=== PATIENT | female | born 1990 | race Caucasian/White ===

== ENCOUNTER 2016-12-05 12:19 | Observation (INO) ==
[2016-12-05] MEDS ORDERED: NS 1,000 ML IV ONE (12:36)
[2016-12-05 13:36] LABS: BASO% 0.5 % (0.0-0.8); EOS# 0.08 X1000 (0.0-0.7); EOS% 1.9 % (0.0-10.0); HEMATOCRIT 28.1 % (37.0-47.0); HEMOGLOBIN 7.9 g/dL (12.0-16.0); LYMPH# 1.24 X1000 (1.2-3.4); LYMPH% 29.8 % (20.5-51.1); MANUAL DIFF NEEDED? NO; MCH 19.5 PG (27-31); MCHC 28.1 g/dL (33-37); MCV 69.2 FL (81-99); MONO# 0.27 X1000 (0.11-0.59); MONO% 6.5 % (1.7-9.3); NEUT% 61.3 % (42.2-75.2); PLT 313 X1000 (130-400); RBC 4.06 XMIL (4.2-5.4)
[2016-12-05 13:46] LABS: AGAP 11; ALBUMIN 4.3 g/dL (3.5-5.0); ALKALINE PHOSPHATASE 71 U/L (32-104); AMYLASE 23 U/L (20-200); BUN 7 mg/dL (8-22); CALCIUM 9.2 mg/dL (8.8-10.2); CHLORIDE 102 mmol/L (98-107); COSMO 276; GOT 16 U/L (10-30); GPT 12 U/L (10-36); LIPASE 25 U/L (13-60); SODIUM 139 mmol/L (136-145); TCO2 26 mmol/L (25-35); TOTAL BILIRUBIN 0.11 mg/dL (0.20-1.00); TOTAL PROTEIN 7.4 g/dL (6.3-8.3)
[2016-12-05 13:53] LABS: URINE MICRO REVIEW NEEDED? NO; URINE SOURCE CLEAN CATCH
[2016-12-05 14:39] LABS: BILIRUBIN URINE NEGATIVE (NEGATIVE); BLOOD URINE LARGE (NEGATIVE); COLOR ORANGE; GLUCOSE URINE NEGATIVE (NEGATIVE); LEUKOCYTES URINE TRACE (NEGATIVE); NITRITE URINE NEGATIVE (NEGATIVE); PH URINE 8.5; PROTEIN URINE TRACE mg/dL (NEGATIVE); SP GRAVITY URINE 1.012; TURBIDITY URINE HAZY (CLEAR); UROBILINOGEN URINE NORMAL (NORMAL)
[2016-12-05 14:40] LABS: UR EPITHELIAL CELLS >10 /HPF (<10); URINE BACTERIA 1+ /HPF; URINE CULTURE NEEDED? YES; URINE RBC <10 /HPF (<10); URINE WBC <10 /HPF (<10)
--- NOTE | 2016-12-05 15:49 | Diag Imaging Result Doc PS360 ---
US PELVIC NON-DUCT INSTALLER COMPLETE - 12/05/2016 INDICATION: Vag bleeding, early preg TECHNIQUE: Endovaginal COMPARISON: None FINDINGS: test is positive. Beta hCG level is 1276. There is a nabothian cyst in the cervix measuring about 1.4 cm. The endometrial stripe thickness is about 9 mm. There is a small hypoechoic or fluid area uterine fundus measuring about 14 x 7 mm. Appearance is indeterminate. This may represent an early . There are several ovarian follicles bilaterally. There is some trace fluid about the right ovary. Ovarian sizes are normal with normal blood flow. The right ovary measures 3.9 x 2.1 x 2.1 cm. The left ovary measures 3.9 x 3.6 x 1.9 cm. IMPRESSION: Indeterminate exam, with no definite intrauterine visible. Small hypoechoic area in the endometrium. Benign nabothian cyst in the uterine cervix. Trace fluid fluid about the right ovary. Follow-up beta hCG levels and probable follow-up imaging recommended. Electronically signed by Colby Camejo 12/05/2016 3:47 PM
--- NOTE | 2016-12-05 16:51 | PROVIDER DOCUMENTATION ---
This chart was entered by Win Shaikh Scribe, acting as scribe for Liana Newton MD. HPI-Female /OB/Breast - General Chief Complaint: Female Stated Complaint: female gu Time Seen by Provider: 12/05/16 12:35 Source: reports: patient Allergies/Adverse Reactions: Patient Allergies Allergy/AdvReac Type Severity Reaction Status Date / Time No Known Allergies Allergy Verified 12/05/16 13:01 Home Medications: Home Medication List Medication Instructions Recorded Confirmed Last Taken Type No Home Medications 03/05/12 12/05/16 Unknown History - History of Present Illness-Female /OB Nature of Presenting Problem: patient is a 26 y/o F that presents with three weeks of heavy vaginal bleeding. patient reports seeing clots and 3 episodes of tissues. She reports having irregular, long periods in past. She has low back pain and low abdominal pain. No fever/chills, n/v/d. Reports possibly being , last regular menstrual period was 8 weeks ago. She is a G 3 P 2 AB 0. Reports her periods usually last 2 weeks Location of complaint: reports: suprapubic Radiation: reports: back Quality of Pain: reports: aching, cramping Severity in ED: reports: moderate Onset/Duration: reports: gradual, other (3 weeks) Timing: reports: still present, getting worse Context/Activities at Onset: reports: none Vaginal Symptoms: reports: abnormal bleeding, passing clots/tissue. denies: discharge, foul odor Vaginal Bleeding Amount: Large/Heavy Pads/Day: 7 Urinary Symptoms: reports: no symptoms Contraception: reports: none Modifying Factors: improves with: nothing Associated Symptoms: denies: back/neck pain, fever/chills, nausea, vomiting, weakness Similar Symptoms Previously?: No Recently seen or treated by another doctor?: No - LMP/ History Menstrual Status: irregular : 3 Para: 2 : 0 Prior Delivery: Review of Systems - Adult - REVIEW OF SYSTEMS - ADULT Constitutional: denies: chills, fever Eyes: reports: no symptoms reported Ears, Nose, Mouth & Throat: reports: no symptoms reported Cardiovascular: reports: no symptoms reported Respiratory: reports: no symptoms reported Gastrointestinal: reports: abdominal pain. denies: diarrhea, nausea, vomiting Genitourinary: reports: other (vaginal bleeding with clots/tissues). denies: dysuria, frequency, hematuria Musculoskeletal: reports: no symptoms reported Integumentary: reports: no symptoms reported Neurological: reports: no symptoms reported Psychiatric: reports: no symptoms reported Endocrine: reports: no symptoms reported Hematologic/Lymphatic: reports: no symptoms reported Allergic/Immunologic: reports: no symptoms reported All Other Systems: Reviewed and Negative Past History - Adult - PAST MEDICAL HISTORY-ADULT Review of Records: reports: Old Records Reviewed, Nursing Assessment Review, Medications Reviewed - PRIOR SURGERIES/PROCEDURES Surgical/Procedure History: reports: - IMMUNIZATION STATUS Childhood Immunizations: See Nurse Assessment Flu Vaccine: See Nurse Assessment - FAMILY HISTORY Family History: reviewed, not pertinent - SOCIAL HISTORY Smoking: non-smoker Alcohol Use Frequency: occasionally Living Situation: family Physical Exam-General - PHYSICAL EXAM-ADULT Initial Vital Signs Reviewed: Yes - CONSTITUTIONAL General Appearance: alert, no apparent distress - EYES Eyes: PERRL/EOMI, pale conjunctivae - HEAD, EARS, NOSE, MOUTH & THROAT HENMT: normocephalic/atraumatic, moist mucous membranes, normal ENT inspection - NECK Neck: full range of motion, normal inspection - RESPIRATORY Respiratory: lungs clear, normal breath sounds, no respiratory distress, no accessory muscle use - CARDIOVASCULAR Cardiovascular: regular rate, rhythm, no edema, no murmur - GASTROINTESTINAL (ABDOMEN) Abdominal Exam: normal bowel sounds, soft, no organomegaly, no pulsatile mass, tenderness (mildly bilateral lower quadrants) - MUSCULOSKELETAL Extremity: normal range of motion, normal inspection - SKIN Integumentary: warm/dry, pallor (slight) - NEUROLOGIC Neurologic: manager human capital II-XII nml as tested, no motor/sensory deficits - PSYCHIATRIC Psych/Mental Status: normal mood/affect, normal thought content, normal thought process, oriented x 3 Progress - PLAN OF CARE/RESULTS Progress/Plan/Lab Results: Vital Signs - 8 hr 12/05/16 12:22 Temperature 98.6 F Pulse Rate 86 Respiratory Rate 18 Blood Pressure 154/92 O2 Sat by Pulse Oximetry 100 Laboratory Results - last 24 hr 12/05/16 12/05/16 12/05/16 13:13 13:13 13:13 WBC 4.16 L RBC 4.06 L Hgb 7.9 L Hct 28.1 L MCV 69.2 L MCH 19.5 L MCHC 28.1 L RDW Std Deviation 18.9 H Plt Count 313 MPV 11.0 H Immature Gran % (Auto) 0.0 Neut % (Auto) 61.3 Lymph % (Auto) 29.8 Esmeralda % (Auto) 6.5 Eos % (Auto) 1.9 Baso % (Auto) 0.5 Immature Gran # (Auto) 0.00 Neut # (Auto) 2.55 Lymph # (Auto) 1.24 Esmeralda # (Auto) 0.27 Eos # (Auto) 0.08 Baso # (Auto) 0.02 Sodium 139 Potassium 4.0 Chloride 102 Carbon Dioxide 26 Anion Gap 11 BUN 7 L Creatinine 0.7 Estimated GFR/1.73 m2 > 60 BUN/Creatinine Ratio 10 Glucose 112 H Calculated Osmolality 276 Calcium 9.2 Total Bilirubin 0.11 L AST 16 ALT 12 Alkaline Phosphatase 71 Total Protein 7.4 Albumin 4.3 Globulin 3.1 Albumin/Globulin Ratio 1.4 Amylase 23 Lipase 25 Ser , Semi-Qnt 1276.0 Urine Source Urine Color Urine Turbidity Urine pH Ur Specific [place] Urine Protein Ur Glucose (Stick) Ur Ketones (Stick) Urine Blood Urine Nitrite Urine Bilirubin Urobilinogen Dipstick Urine Leukocytes Urine WBC (Auto) Urine RBC (Auto) U Epithel Cells (Auto) Urine Bacteria (Auto) Urine Test ABO/Rh Weak D (Du) Screen RhIG Candidate? 12/05/16 12/05/16 12/05/16 13:13 13:20 13:20 WBC RBC Hgb Hct MCV MCH MCHC RDW Std Deviation Plt Count MPV Immature Gran % (Auto) Neut % (Auto) Lymph % (Auto) Esmeralda % (Auto) Eos % (Auto) Baso % (Auto) Immature Gran # (Auto) Neut # (Auto) Lymph # (Auto) Esmeralda # (Auto) Eos # (Auto) Baso # (Auto) Sodium Potassium Chloride Carbon Dioxide Anion Gap BUN Creatinine Estimated GFR/1.73 m2 BUN/Creatinine Ratio Glucose Calculated Osmolality Calcium Total Bilirubin AST ALT Alkaline Phosphatase Total Protein Albumin Globulin Albumin/Globulin Ratio Amylase Lipase Ser , Semi-Qnt Urine Source CLEAN CATCH Urine Color ORANGE Urine Turbidity HAZY Urine pH 8.5 Ur Specific [place] 1.012 Urine Protein TRACE A Ur Glucose (Stick) NEGATIVE Ur Ketones (Stick) NEGATIVE Urine Blood LARGE A Urine Nitrite NEGATIVE Urine Bilirubin NEGATIVE Urobilinogen Dipstick NORMAL Urine Leukocytes TRACE A Urine WBC (Auto) <10 Urine RBC (Auto) <10 U Epithel Cells (Auto) >10 A Urine Bacteria (Auto) 1+ Urine Test POSITIVE ABO/Rh O NEGATIVE Weak D (Du) WEAK D NEGATIVE Screen NEGATIVE RhIG Candidate? YES Orders Category Date Time Status Saline Loc DIRECTED Care 12/05/16 12:36 Active NPO Diet 12/05/16 12:36 Active US PELVIC NON-APPLICATION COUNSELOR COMPLETE [US] Stat Exams 12/05/16 14:20 Completed AMYLASE [CHEM] Stat Lab 12/05/16 13:13 Completed CBC WITH ELECTRONIC DIFF [HEME] Stat Lab 12/05/16 13:13 Completed COMPREHENSIVE METABOLIC PANEL [CHEM] Stat Lab 12/05/16 13:13 Completed BLEED SCREEN [BBK] Stat Lab 12/05/16 13:13 Results HEMATOCRIT [HEME] Stat Lab 12/05/16 16:44 Ordered HEMOGLOBIN [HEME] Stat Lab 12/05/16 16:44 Ordered LIPASE [CHEM] Stat Lab 12/05/16 13:13 Completed TEST-URINE [PREG] Stat Lab 12/05/16 13:20 Completed QUANT TEST Stat Lab 12/05/16 13:13 Completed RHOGAM WORKUP [BBK] Stat Lab 12/05/16 13:13 Results RHOGAM [BBK] Stat Lab 12/05/16 13:13 Results URINALYSIS W/POSS RFLX CULT-1 [URINALYSIS] Stat Lab 12/05/16 13:20 Completed URINE CULTURE [RM] Routine Lab 12/05/16 14:48 Received 0.9% Sodium Chloride Inj [Ns] 1,000 ml Med 12/05/16 12:36 Discontinued IV 999 mls/hr U/S Pelvic report as follows: small hypoechoic area in the endometrium, benign nabothian cyst in the uterine cervix, trace fluid about the R ovary, f/u beta HCG and probably f/u imaging recommended Orders Category Date Time Status Saline Loc DIRECTED Care 12/05/16 12:36 Active NPO Diet 12/05/16 12:36 Active US PELVIC NON-APPLICATION COUNSELOR COMPLETE [US] Stat Exams 12/05/16 14:20 Completed AMYLASE [CHEM] Stat Lab 12/05/16 13:13 Completed CBC WITH ELECTRONIC DIFF [HEME] Stat Lab 12/05/16 13:13 Completed COMPREHENSIVE METABOLIC PANEL [CHEM] Stat Lab 12/05/16 13:13 Completed BLEED SCREEN [BBK] Stat Lab 12/05/16 13:13 Results HEMATOCRIT [HEME] Stat Lab 12/05/16 16:44 Ordered HEMOGLOBIN [HEME] Stat Lab 12/05/16 16:44 Ordered LIPASE [CHEM] Stat Lab 12/05/16 13:13 Completed TEST-URINE [PREG] Stat Lab 12/05/16 13:20 Completed QUANT TEST Stat Lab 12/05/16 13:13 Completed RHOGAM WORKUP [BBK] Stat Lab 12/05/16 13:13 Results RHOGAM [BBK] Stat Lab 12/05/16 13:13 Results URINALYSIS W/POSS RFLX CULT-1 [URINALYSIS] Stat Lab 12/05/16 13:20 Completed URINE CULTURE [RM] Routine Lab 12/05/16 14:48 Received 0.9% Sodium Chloride Inj [Ns] 1,000 ml Med 12/05/16 12:36 Discontinued IV 999 mls/hr Result Diagrams: 12/05/16 13:13 12/05/16 13:13 - ULTRASOUND (By Radiology) 1 US Study: other (pelvic us) Impression: Abnormal US Results: see progress report note for report - CONSULTS/PCP/HOSPITALIST Notification #1 *Consult/PCP/Hospitalist*: ( production recovery operator for Epic Director) Time Discussed: 16:27 Consult Disposition: other (Give Rhogam injection, if patient wants to go home send home f/u in office) Departure - Departure Date of Disposition Decision: 12/05/16 Time of Disposition Decision: 16:48 DIAGNOSIS: Threatened , Anemia Disposition: ADMITTED INPATIENT 09 Certified Medical Emergency: Emergent Condition: Stable Referrals and Follow-Ups: None,PCP [Primary Care Provider] - - Critical Care Note This patient required my direct & personal management of CC.: No This chart was documented by the indicated scribe, (Win Shaikh, Scribe) and accurately reflects the services I performed and decisions made by me, Liana Newton MD, as attested by the provider's signature.
[2016-12-05 20:32] LABS: BASO% 0.6 % (0.0-0.8); EOS# 0.05 X1000 (0.0-0.7); HEMATOCRIT 25.4 % (37.0-47.0); HEMOGLOBIN 7.2 g/dL (12.0-16.0); IMM GRAN# 0.01 X1000 (0.0-0.04); IMM GRAN% 0.2 % (0.0-0.5); LYMPH# 1.61 X1000 (1.2-3.4); LYMPH% 32.5 % (20.5-51.1); MANUAL DIFF NEEDED? NO; MCH 19.4 PG (27-31); MCHC 28.3 g/dL (33-37); MCV 68.3 FL (81-99); MONO% 6.1 % (1.7-9.3); MPV 10.3 FL (7.4-10.4); NEUT% 59.6 % (42.2-75.2); PLT 283 X1000 (130-400); RBC 3.72 XMIL (4.2-5.4)
[2016-12-05] MEDS ORDERED: PHENERGAN PO PRN (20:48)
[2016-12-05] MEDS ORDERED: AMBIEN PO PRN (20:48)
[2016-12-05] MEDS: D5 1/2 NS 1,000 ML IV PRN (21:00)
[2016-12-05] MEDS: PERCOCET-10 PO PRN (21:02)
[2016-12-05] MEDS: ZOFRAN IV PRN (21:03)
--- NOTE | 2016-12-05 21:25 | HISTORY AND PHYSICAL ---
DIAGNOSIS: Bleeding in early . SUMMARY: Gina Gutierrez is a 26-year-old 3, para 2-0-0-2, who states her last menstrual period was 7 weeks ago. She states that she very often misses menstrual cycles and her periods have always been very irregular. She had no idea she was . She states if she had to guess, she would guess that she got 6-8 weeks ago. She started bleeding on 11/17/2016. It started off heavy and then was spotting, then became heavy again where she passed large clots and had some cramps, and then she continued to bleed and today she presented to the emergency room at [facility] with heavy bleeding once again. At the hospital she had a quantitative hCG that was 1276. Her hemoglobin was 7.9, hematocrit was 28.1. Ultrasound was performed which showed no definite intrauterine . There was a small hypoechoic area in her uterus. The ovaries and adnexa were grossly normal. Due to her continued bleeding and low count, ER physician felt it was prudent that she be admitted for further observation after 3-1/2 hours of transfer time, she presented to our hospital. PAST MEDICAL HISTORY: Patient has had 2 sections. She later had incision revision where endometriosis was seen. She states that she has not used control since her last . Her blood type is O negative. ALLERGIES: None. CURRENT MEDICATIONS: None. PHYSICAL EXAMINATION: GENERAL: Shows a well-developed, well-nourished female. VITAL SIGNS: Stable. She is afebrile. CARDIOVASCULAR: Regular rate and rhythm without murmurs, rubs, or gallops. PULMONARY: Clear. ABDOMEN: Diffusely tender without rebound, rigidity, or guarding. PELVIC: On pelvic examination, her cervix is closed. There is no active bleeding. She is O negative and RhoGAM was given. LABORATORY STUDIES: Her repeat hemoglobin and hematocrit 7 hours after the initial hemoglobin and hematocrit are 7.2/25.4. IMPRESSION: Bleeding in early . This most likely represents either complete or incomplete . Of course ectopic has not been ruled out. My plan is to watch her vital signs through the night and early in the morning we will repeat the hemoglobin and hematocrit and also the quantitative HCG. Unless there has been a dramatic drop in quantitative HCG, will anticipate taking her to the operating room in the morning for suction dilatation and curettage, possible laparoscopy. cc: Sandro Biswas MD
[2016-12-06] MEDS: DEMEROL IV PRN ×2 (00:37→05:15)
[2016-12-06] MEDS: ZOFRAN IV PRN (05:18)
[2016-12-06] MEDS: D5 1/2 NS 1,000 ML IV PRN (05:21)
[2016-12-06 06:06] LABS: HEMATOCRIT 25.6 % (37.0-47.0); MCHC 27.3 g/dL (33-37); MCV 69.6 FL (81-99); MPV 11.5 FL (7.4-10.4); RBC 3.68 XMIL (4.2-5.4)
[2016-12-06] MEDS: PERCOCET-10 PO PRN (09:37)
[2016-12-06 12:31] VITALS: BP 114/71
--- NOTE | 2016-12-07 08:25 | DISCHARGE SUMMARY ---
ADMISSION DATE: 12/05/2016 DISCHARGE DATE: 12/06/2016 ADMITTING DIAGNOSIS: Bleeding in early . DISCHARGE DIAGNOSIS: Complete . SUMMARY: Gina Gutierrez is a 26-year-old, 3, para 2-0-0-2, who presented to the emergency department at [facility] with prolonged bleeding. She was found to be with a quantitative hCG of 1276. Her initial hemoglobin was 7.9. She was transferred to our facility for further evaluation. A repeat hemoglobin and hematocrit on the day of admission was 7.2 and 25.4. On examination, she was having scant vaginal bleeding. She was admitted for observation. This morning, her hemoglobin and hematocrit are 7 and 25.6. Her vital signs are stable and she is afebrile. Her quantitative hCG has dropped to 705.5. This is consistent with a complete AB. As she is not bleeding heaving and her quantitative hCG is dropping, I do not feel that a dilatation and curettage is necessary. This morning, she is afebrile. Vital signs are stable. Her abdomen is just slightly tender. She is having no vaginal bleeding. Ms. Gutierrez will be discharged and will follow up in the office with another quantitative hCG. She is to call if there is any heavy bleeding or pain. I will send her home with a prescription for Percocet for the cramps she is having. I also gave her some Phenergan for nausea. I will put her on iron and vitamins. She will call our office and I will see her again in the 1st part of next week. She was instructed to go to the emergency room immediately if she begins having severe pain or heavy bleeding. cc: Sandro Biswas MD
== END 2016-12-06 12:50 | disposition home or self-care (01) ==
LOC: P.WC 12:19 → ED 12:19 → P.WC 18:43
PROVIDERS: ADMIT Obstetrics & Gynecology; ATTEND Obstetrics & Gynecology

== ENCOUNTER 2019-02-01 12:42 | Inpatient (IN) ==
[2019-02-01 13:48] LABS: BASO# 0.01 X1000 (0.0-0.2); BASO% 0.2 % (0.0-0.8); EOS# 0.04 X1000 (0.0-0.7); EOS% 0.7 % (0.0-10.0); HEMATOCRIT 33.3 % (37.0-47.0); HEMOGLOBIN 10.3 g/dL (12.0-16.0); IMM GRAN# 0.01 X1000 (0.0-0.04); IMM GRAN% 0.2 % (0.0-0.5); LYMPH% 19.9 % (20.5-51.1); MCH 24.3 PG (27-31); MCHC 30.9 g/dL (33-37); MCV 78.7 FL (81-99); MONO# 0.41 X1000 (0.11-0.59); MONO% 6.8 % (1.7-9.3); MPV 11.1 FL (7.4-10.4); NEUT# 4.37 X1000 (1.4-6.5); NEUT% 72.2 % (42.2-75.2); PLT 238 X1000 (130-400); RBC 4.23 XMIL (4.2-5.4); RDW 16.9 % (11.5-14.5); WBC 6.04 X1000 (4.8-10.8)
[2019-02-01 14:04] LABS: AGAP 11; ALBUMIN 3.9 g/dL (3.5-5.0); ALKALINE PHOSPHATASE 74 U/L (32-104); BUN 5 mg/dL (8-22); CALCIUM 8.5 mg/dL (8.8-10.2); CHLORIDE 103 mmol/L (98-107); COSMO 273; CREATININE 0.5 mg/dL (0.5-0.9); ESTIMATED GFR > 60; GLUCOSE 104 mg/dL (70-104); GOT 12 U/L (10-30); GPT 7 U/L (10-36); LIPASE 18 U/L (13-60); POTASSIUM 3.9 mmol/L (3.5-5.1); SODIUM 138 mmol/L (136-145); TCO2 24 mmol/L (25-35); TOTAL BILIRUBIN < 0.15 mg/dL (0.20-1.00)
[2019-02-01 14:24] LABS: URINE SOURCE CLEAN CATCH
[2019-02-01 14:47] LABS: BILIRUBIN URINE NEGATIVE (NEGATIVE); BLOOD URINE NEGATIVE (NEGATIVE); CLARITY CLEAR (CLEAR); COLOR YELLOW; GLUCOSE URINE NEGATIVE (NEGATIVE); KETONE URINE NEGATIVE (NEGATIVE); LEUKOCYTES URINE NEGATIVE (NEGATIVE); NITRITE URINE NEGATIVE (NEGATIVE); PROTEIN URINE NEGATIVE (NEGATIVE); UROBILINOGEN URINE NORMAL
--- NOTE | 2019-02-01 16:41 | Diag Imaging Result Doc PS360 ---
EXAM: US OBS COMPLETE < 14 WKS INDICATION: unable to detect heartbeat TECHNIQUE: COMPARISON: None. FINDINGS: There is a single intrauterine gestation. Based on crown-rump length, the gestational age is 12 weeks 0 days +/- 7 days. However, the banana grader detected no heart tones and there is no movement appreciated. This is highly suggestive of a missed spontaneous . No pelvic free fluid is identified. IMPRESSION: Findings suggestive of a missed spontaneous . Close ultrasound and clinical surveillance is recommended. Electronically signed by Sandro Vasquez 02/01/2019 4:39 PM
--- NOTE | 2019-02-01 16:43 | PROVIDER DOCUMENTATION ---
This chart was entered by Riky Aleman Scribe, acting as scribe for Heriberto Arreola CRNP. 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 Pt reports being 14 weeks . Pt states she recently had a 4D ultrasound done and was told that a heartbeat was not detected. Pt states she has not used any care. Pt reports she was told that a heartbeat was detected two weeks ago at [facility]. Pt reports this is her fifth . Pt reports having a miscarriage last year. Attempted FHT, unable to find at this time. Does patient report she is ?: Yes Location of complaint: reports: vaginal (See HPI) Quality of Pain: reports: none Severity in ED: reports: mild Onset/Duration: reports: unsure Timing: reports: still present Vaginal Symptoms: reports: other (See HPI) Urinary Symptoms: reports: no symptoms. denies: dysuria, frequency, low back pain Related Symptoms: reports: no symptoms. denies: pelvic pain, vaginal bleeding, abdominal pain Associated Symptoms: reports: denies symptoms. denies: fever/chills, nausea, vomiting Recently seen or treated by another doctor?: Yes - LMP/ History : 5 Para: 3 Care: none Weeks/Months: 14 Age estimated by:: ultrasound Review of Systems - Adult - REVIEW OF SYSTEMS - ADULT Constitutional: reports: see HPI Eyes: reports: no symptoms reported Ears, Nose, Mouth & Throat: reports: no symptoms reported Cardiovascular: reports: no symptoms reported Respiratory: reports: no symptoms reported Gastrointestinal: reports: no symptoms reported. denies: abdominal pain, nausea, vomiting Genitourinary: reports: see HPI. denies: dysuria, frequency, flank pain, hematuria Musculoskeletal: reports: no symptoms reported. denies: back pain Integumentary: reports: no symptoms reported Neurological: reports: no symptoms reported Psychiatric: reports: no symptoms reported Endocrine: reports: no symptoms reported Hematologic/Lymphatic: reports: no symptoms reported Allergic/Immunologic: reports: no symptoms reported All Other Systems: Reviewed and Negative Past History - Adult - PAST MEDICAL HISTORY-ADULT Review of Records: reports: Old Records Reviewed, Nursing Assessment Review, Medications Reviewed, Social history reviewed & non-contributory. Major Childhood Illnesses: reports: denies history Cardiovascular: reports: denies history Respiratory: reports: denies history Gastrointestinal: reports: denies history Obstetrical/Gynecological: reports: denies history Genitourinary: reports: denies history Musculoskeletal: reports: denies history Neurological: reports: denies history Endocrine/Immune: reports: denies history Other Conditions: reports: denies history - PRIOR SURGERIES/PROCEDURES Surgical/Procedure History: reports: - IMMUNIZATION STATUS Childhood Immunizations: See Nurse Assessment Flu Vaccine: See Nurse Assessment - FAMILY HISTORY Family History: reviewed, not pertinent - SOCIAL HISTORY Smoking: denies, non-smoker Substance Use: none/never, denies Alcohol Use Frequency: never Physical Exam-General - PHYSICAL EXAM-ADULT Initial Vital Signs Reviewed: Yes - CONSTITUTIONAL General Appearance: appears well, alert, no apparent distress - EYES Eyes: PERRL/EOMI, pink conjunctivae - HEAD, EARS, NOSE, MOUTH & THROAT HENMT: moist mucous membranes - NECK Neck: non-tender, full range of motion, supple, normal inspection - RESPIRATORY Respiratory: lungs clear, normal breath sounds, no respiratory distress, no accessory muscle use - CARDIOVASCULAR Cardiovascular: normal peripheral pulses, regular rate, rhythm - GASTROINTESTINAL (ABDOMEN) Abdominal Exam: normal bowel sounds, non tender, soft. negative: distended, guarding, rigid, rebound - MUSCULOSKELETAL Back Exam: normal inspection, no CVA tenderness, no vertebral tenderness Extremity: normal range of motion, non-tender, normal gait - SKIN Integumentary: normal color, warm/dry. negative: rash - NEUROLOGIC Neurologic: grossly normal, no motor/sensory deficits - PSYCHIATRIC Psych/Mental Status: normal mood/affect, normal thought content, normal thought process, oriented x 3 Progress - PLAN OF CARE/RESULTS Progress/Plan/Lab Results: Vital Signs - 8 hr 02/01/19 13:01 02/01/19 15:36 Temperature 98.9 F 98.3 F Pulse Rate 81 88 Respiratory Rate 20 18 Blood Pressure 126/85 135/79 O2 Sat by Pulse Oximetry 99 98 Bedside Urine ED: Urine Bedside Start: 02/01/19 13:27 Freq: ORDERED Status: Active Protocol: Activity Type Activity Date Activity User E-Sign Co-Sign Detail Recorded Client Recorded Date Recorded By Document 02/01/19 15:38 [id number] 02/01/19 15:42 [id number] 02/01/19 15:38 Point of Care [Bedside Point of Care] -Lot # [id number] - Results Positive -Control Line Visible? Yes Laboratory Results - last 24 hr 02/01/19 02/01/19 02/01/19 13:38 13:38 13:38 WBC 6.04 RBC 4.23 Hgb 10.3 L Hct 33.3 L MCV 78.7 L MCH 24.3 L MCHC 30.9 L RDW Std Deviation 16.9 H Plt Count 238 MPV 11.1 H Immature Gran % (Auto) 0.2 Neut % (Auto) 72.2 Lymph % (Auto) 19.9 L [place] % (Auto) 6.8 Eos % (Auto) 0.7 Baso % (Auto) 0.2 Immature Gran # (Auto) 0.01 Neut # (Auto) 4.37 Lymph # (Auto) 1.20 [place] # (Auto) 0.41 Eos # (Auto) 0.04 Baso # (Auto) 0.01 Sodium 138 Potassium 3.9 Chloride 103 Carbon Dioxide 24 L Anion Gap 11 BUN 5 L Creatinine 0.5 Estimated GFR/1.73 m2 > 60 BUN/Creatinine Ratio 10 Glucose 104 Calculated Osmolality 273 Calcium 8.5 L Total Bilirubin < 0.15 L AST 12 ALT 7 L Alkaline Phosphatase 74 Total Protein 7.0 Albumin 3.9 Globulin 3.0 Albumin/Globulin Ratio 1.0 Lipase 18 Ser , Semi-Qnt 7785.0 Urine Source Urine Color Urine Clarity Urine pH Ur Specific [place] Urine Protein Urine Ketones Urine Blood Urine Nitrite Urine Bilirubin Urine Urobilinogen Urine WBC Urine Glucose 02/01/19 14:18 WBC RBC Hgb Hct MCV MCH MCHC RDW Std Deviation Plt Count MPV Immature Gran % (Auto) Neut % (Auto) Lymph % (Auto) [place] % (Auto) Eos % (Auto) Baso % (Auto) Immature Gran # (Auto) Neut # (Auto) Lymph # (Auto) [place] # (Auto) Eos # (Auto) Baso # (Auto) Sodium Potassium Chloride Carbon Dioxide Anion Gap BUN Creatinine Estimated GFR/1.73 m2 BUN/Creatinine Ratio Glucose Calculated Osmolality Calcium Total Bilirubin AST ALT Alkaline Phosphatase Total Protein Albumin Globulin Albumin/Globulin Ratio Lipase Ser , Semi-Qnt Urine Source CLEAN CATCH Urine Color YELLOW Urine Clarity CLEAR Urine pH 7.0 Ur Specific [place] 1.000 Urine Protein NEGATIVE Urine Ketones NEGATIVE Urine Blood NEGATIVE Urine Nitrite NEGATIVE Urine Bilirubin NEGATIVE Urine Urobilinogen NORMAL Urine WBC NEGATIVE Urine Glucose NEGATIVE Orders Category Date Time Status ED: Urine Bedside ORDERED Care 02/01/19 13:27 Active NPO Diet 02/01/19 13:27 Active US OBS COMPLETE < 14 WKS [US] Stat Exams 02/01/19 14:17 Taken CBC WITH DIFF [HEME] Stat Lab 02/01/19 13:38 Completed COMPREHENSIVE METABOLIC PANEL [CHEM] Stat Lab 02/01/19 13:38 Completed LIPASE [CHEM] Stat Lab 02/01/19 13:38 Completed QUANT TEST Stat Lab 02/01/19 13:[address] [URINALYSIS] Stat Lab 02/01/19 14:18 Completed Abd Pain/OB <20 weeks Stat Oth 02/01/19 13:26 Ordered Result Diagrams: 02/01/19 13:38 02/01/19 13:38 - REASSESSMENT Reassessment #1 Time Reassessed: 16:13 (pt and family updated that u/s is here now and pt should be going soon, verbalizd understanding. No further complaints or needs identified.) Reassessment #2 Time Reassessed: 16:41 (reviewed results with pt and family. Comfort measures offered. Made pt aware will be going to L&D. Pt agrees with tx plan.) - CONSULTS/PCP/HOSPITALIST Notification #1 *Consult/PCP/Hospitalist*: Dr Ocampo Time Discussed: 16:32 (send to L&D) Consult Disposition: Admit Departure - Departure Date of Disposition Decision: 02/01/19 Time of Disposition Decision: 16:40 DIAGNOSIS: Spontaneous Disposition: ADMITTED INPATIENT Certified Medical Emergency: Emergent Condition: Stable Additional Freetext Instructions: ED Follow Up Instructions: You have been treated by a care provider in the Emergency Department. These instructions are being provided to you so you can have an understanding of how to care for yourself upon discharge. Upon discharge from the Emergency Department, you are responsible for making arrangements for follow-up care by a physician of your choice. Take all prescribed medications as directed. Return to the Emergency Department immediately for any new or worsening symptoms. You may call the Physician Referral phone number at [phone] to obtain a list of Physicians who are taking new patients. Referrals and Follow-Ups: None,PCP [Primary Care Provider] - - Critical Care Note This patient required my direct & personal management of CC.: No Attestation - Physician/ JESUS Attestation Patient care was provided by Advanced Practice Provider:: Yes Advanced Practice Provider:: Heriberto Arreola Advanced Practice Provider documentation review:: The Mid-level provider documentation, treatment plan and medical decision making was reviewed by the physician who agrees with all treatment and medical decision making by the MLP. The physician spent face to face time with patient:: No Advanced Practice Provider documentation review:: Supervising physician onsite and consulted in the evaluation and care of this patient. The physician did not have a face to face encounter with the patient. This chart was documented by the indicated scribe, (Riky Aleman Scribe) and accurately reflects the services I performed and decisions made by me, Heriberto Arreola CRNP, as attested by the provider's signature.
[2019-02-01] MEDS ORDERED: STADOL IV PRN (18:22)
[2019-02-01] MEDS ORDERED: LR 500 ML IV ONE (18:22)
[2019-02-01] MEDS ORDERED: NARCAN IV PRN (18:24)
[2019-02-01] MEDS ORDERED: ZOFRAN IV PRN (18:25)
[2019-02-01] MEDS ORDERED: TYLENOL PO PRN (18:25)
[2019-02-01] MEDS ORDERED: CYTOTEC VAG SCH ×2 (18:30→22:45)
[2019-02-01] MEDS ORDERED: LR 1,000 ML IV SCH (18:30)
--- NOTE | 2019-02-01 21:08 | HISTORY AND PHYSICAL ---
CHIEF COMPLAINT: Possible missed AB. HISTORY OF PRESENT ILLNESS: A 28-year-old G5, P2-1-1-3 at 14 weeks and 5 days by stated CHRIS of 07/27/2018 (based on a 12 week 1 day scan done on 01/14/2019 per patient report) was seen initially in the ED for a potential miscarriage. Patient reports she had a 4D ultrasound done and was informed of her fetus having no heart tones. The patient reports of no established care during this yet. She reports that her fetus did have a heartbeat detected about 2 weeks ago at the [facility] facility. The patient denied of any vaginal bleeding. She does report of some minimal abdominal cramping and nausea but no vomiting. The patient denied of any fever. PAST MEDICAL HISTORY: Class 1 obesity. PAST SURGICAL HISTORY: x3, sinus surgery, and laparotomy for endometrioma resection. OBSTETRICAL HISTORY: 1. ; term; male; 9 pounds 7 ounces 2. delivery due to placenta abruption; female; 4 pounds 13 ounces. 3. SAB. 4. ; term; female; 8 pounds 3 ounces. 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 The patient does report of history of abnormal Pap smears but denied any prior LEEP or cryo procedures. Reports last Pap approximately 3 years ago. MEDICATIONS: vitamins. ALLERGIES: No known drug allergies. SOCIAL HISTORY: The patient denies of any tobacco, alcohol, or illicit drug use. FAMILY HISTORY: Patient's mother has breast cancer. REVIEW OF SYSTEMS: Positive for nausea and abdominal cramping. OBJECTIVE: Temperature 97.7 degrees, pulse 79, respirations 18, blood pressure 140/74. Repeat blood pressure within normal limits. BMI 33.9.General: No apparent distress. Patient tearful. CV: Regular rate and rhythm. Pulm: Clear to auscultation bilaterally. Abdomen: Soft, nontender to palpation. Pelvic: Cervix closed, thick and high. No blood within the vaginal vault. IMAGING: Pelvic ultrasound from 02/01/2019: Findings suggestive of a missed spontaneous . Psychiatric Tech detected no heart tones and no movement. LABORATORY: White blood cell count 6.04, hemoglobin 10.3, hematocrit 33.3, HCG quant 7785. Lipase 18, ALT 7, AST 12, creatinine 0.5. Rh pending ASSESSMENT AND PLAN: A 28-year-old G5, P2-1-1-3 at 14 weeks and 5 days by stated estimated date delivery with: 1. Missed -I discussed with the patient the diagnosis and treatment options which include expectant, medical, and surgical management. Given her gestational age, and a history of 3 prior C-sections, recommend medical in-patient management. I discussed with patient given that she has a history of 3 prior section there is a theoretical risk of uterine rupture with medical induction and which would require emergent surgery. I also discussed with the patient the potential for a prolonged stay in the hospital with a medical induction. -Given that patient had 3 prior section with the most recent section done approximately 9 months ago, will start induction with a lower frequency and lower dose of misoprostol and to monitor for potential signs of uterine abruption closely. -I discussed that a section for management of her missed AB would place patient at a greater morbidity without any additional benefit. The patient expressed understanding. All questions answered. Patient desired to proceed with medical induction. -Misoprostol 400 mcg per vagina q.4 hours initiated for now. -The patient may receive an epidural for pain control. For now Stadol 1 to 2 mg q.2 hours p.r.n. pain ordered. The patient may also receive a DRUG SAFETY COORDINATOR. 2. Anemia. Hemoglobin and hematocrit on admission 10.3/33.3. [facility]
[2019-02-02] MEDS ORDERED: CYTOTEC VAG SCH ×2 (01:30)
[2019-02-02] MEDS ORDERED: PHENERGAN IV PRN (02:00)
[2019-02-02] MEDS ORDERED: SODIUM CHLORIDE 0.9% INJ PRN (02:00)
[2019-02-02] MEDS: STADOL IV PRN ×2 (02:13→03:50)
[2019-02-02] MEDS ORDERED: PITOCIN 30 UNITS/NS 30 UNIT/500 ML IV.SOLN ONE (03:45)
[2019-02-02] MEDS ORDERED: PEPCID ONE (05:16)
--- NOTE | 2019-02-02 05:20 | OB/GYN PROGRESS NOTE ---
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 Progress Note: Vital Signs - 24 hr 02/01/19 13:01 02/01/19 15:36 02/01/19 16:53 Temperature 98.9 F 98.3 F 98.3 F Pulse Rate 81 88 82 Respiratory Rate 20 18 20 Blood Pressure 126/85 135/79 118/084 O2 Sat by Pulse Oximetry 99 98 100 02/01/19 20:00 Temperature 97.6 F Pulse Rate 84 Respiratory Rate 18 Blood Pressure 118/68 O2 Sat by Pulse Oximetry 98 Bedside Urine ED: Urine Bedside Start: 02/01/19 13:27 Freq: ORDERED Status: Complete Protocol: Activity Type Activity Date Activity User E-Sign Co-Sign Detail Recorded Client Recorded Date Recorded By Document 02/01/19 15:38 [id number] 02/01/19 15:42 [id number] Edit Status 02/01/19 22:27 [id number] Active=>Complete [id number] 02/01/19 22:27 [id number] 02/01/19 15:38 Point of Care [Bedside Point of Care] -Lot # [id number] - Results Positive -Control Line Visible? Yes Laboratory Results - last 24 hr 02/01/19 02/01/19 02/01/19 13:38 13:38 13:38 WBC 6.04 RBC 4.23 Hgb 10.3 L Hct 33.3 L MCV 78.7 L MCH 24.3 L MCHC 30.9 L RDW Std Deviation 16.9 H Plt Count 238 MPV 11.1 H Immature Gran % (Auto) 0.2 Neut % (Auto) 72.2 Lymph % (Auto) 19.9 L [place] % (Auto) 6.8 Eos % (Auto) 0.7 Baso % (Auto) 0.2 Immature Gran # (Auto) 0.01 Neut # (Auto) 4.37 Lymph # (Auto) 1.20 [place] # (Auto) 0.41 Eos # (Auto) 0.04 Baso # (Auto) 0.01 Sodium 138 Potassium 3.9 Chloride 103 Carbon Dioxide 24 L Anion Gap 11 BUN 5 L Creatinine 0.5 Estimated GFR/1.73 m2 > 60 BUN/Creatinine Ratio 10 Glucose 104 Calculated Osmolality 273 Calcium 8.5 L Total Bilirubin < 0.15 L AST 12 ALT 7 L Alkaline Phosphatase 74 Total Protein 7.0 Albumin 3.9 Globulin 3.0 Albumin/Globulin Ratio 1.0 Lipase 18 Ser , Semi-Qnt 7785.0 Urine Source Urine Color Urine Clarity Urine pH Ur Specific [place] Urine Protein Urine Ketones Urine Blood Urine Nitrite Urine Bilirubin Urine Urobilinogen Urine WBC Urine Glucose Blood Type Antibody Screen 02/01/19 02/01/19 14:18 22:15 WBC RBC Hgb Hct MCV MCH MCHC RDW Std Deviation Plt Count MPV Immature Gran % (Auto) Neut % (Auto) Lymph % (Auto) [place] % (Auto) Eos % (Auto) Baso % (Auto) Immature Gran # (Auto) Neut # (Auto) Lymph # (Auto) [place] # (Auto) Eos # (Auto) Baso # (Auto) Sodium Potassium Chloride Carbon Dioxide Anion Gap BUN Creatinine Estimated GFR/1.73 m2 BUN/Creatinine Ratio Glucose Calculated Osmolality Calcium Total Bilirubin AST ALT Alkaline Phosphatase Total Protein Albumin Globulin Albumin/Globulin Ratio Lipase Ser , Semi-Qnt Urine Source CLEAN CATCH Urine Color YELLOW Urine Clarity CLEAR Urine pH 7.0 Ur Specific [place] 1.000 Urine Protein NEGATIVE Urine Ketones NEGATIVE Urine Blood NEGATIVE Urine Nitrite NEGATIVE Urine Bilirubin NEGATIVE Urine Urobilinogen NORMAL Urine WBC NEGATIVE Urine Glucose NEGATIVE Blood Type O NEGATIVE Antibody Screen NEGATIVE PN baby del intact and unattended approx 2-3 hrs ago after addition cytotec and OT no placenta SVE 3cm cx and non palp placenta Discussed w/ pt proceed w/curretage risks and cx discussed
[2019-02-02] MEDS ORDERED: REGLAN IV ONE (05:21)
[2019-02-02] MEDS ORDERED: KEFZOL 2 GM/D5W 2 GM/50 ML IVPB IV ONE (05:21)
[2019-02-02] MEDS ORDERED: SODIUM CHLORIDE 0.9% INJ ONE (05:21)
[2019-02-02] MEDS ORDERED: PEPCID IV ONE (05:21)
[2019-02-02] MEDS ORDERED: BICITRA ONE (05:47)
[2019-02-02] MEDS ORDERED: DIPRIVAN 1% ONE (05:49)
[2019-02-02] MEDS ORDERED: QUELICIN (DOSE) ONE (06:00)
[2019-02-02] MEDS ORDERED: TORADOL ONE (06:00)
[2019-02-02] MEDS ORDERED: ZOFRAN ONE (06:00)
[2019-02-02] MEDS ORDERED: XYLOCAINE-MPF 2% ONE (06:00)
[2019-02-02] MEDS ORDERED: BENADRYL ONE (06:22)
[2019-02-02] MEDS ORDERED: PERI MEDS (DERMOPLAST/NUPERCAINAL/TUCKS) MISC PRN (06:27)
[2019-02-02] MEDS ORDERED: MOTRIN PO PRN (06:27)
[2019-02-02] MEDS ORDERED: M-M-R II VACCINE SUBQ ONE (06:27)
[2019-02-02] MEDS ORDERED: AMBIEN PO PRN (06:27)
[2019-02-02] MEDS ORDERED: BOOSTRIX VACCINE IM ONE (06:27)
[2019-02-02] MEDS ORDERED: XYLOCAINE-MPF 1% INJ PRN (06:27)
[2019-02-02] MEDS ORDERED: PITOCIN IM PRN (06:27)
[2019-02-02] MEDS ORDERED: PITOCIN 30 UNITS/NS 30 UNIT/500 ML IV.SOLN IV SCH (06:30)
[2019-02-02] MEDS ORDERED: PITOCIN 20 UNITS/NS 20 UNITS/1,000 ML IV.SOLN IV SCH (06:30)
--- NOTE | 2019-02-02 06:52 | OPERATIVE NOTE ---
PROCEDURE DATE: PROCEDURE PERFORMED: Uterine curettage. PREOPERATIVE DIAGNOSES: 1. demise at 14 and 5/7th weeks gestation. 2. Three prior sections. 3. Placental retention. POSTOPERATIVE DIAGNOSES: 1. demise at 14 and 5/7th weeks gestation. 2. Three prior sections. 3. Placental retention. SPECIMENS: POCs, placenta. ESTIMATED BLOOD LOSS: 100 mL intraoperatively. ANESTHESIA: General sedation. DESCRIPTION OF PROCEDURE: After the risks, complications, and benefits were all explained to the patient, the patient was taken to the operating room where her general anesthesia was obtained. She was prepped and draped in the lithotomy position. A speculum was placed in the vagina and the anterior lip of the cervix was grasped with the ring forceps. The vagina was cleared of all clot and debris. Ring forceps were placed high in the uterine cavity and the placental tissue was grasped. It had previously abrupted and it was brought through the incision. A banjo curette was used to obtain a gritty texture throughout the uterine cavity, and the specimen was pulled and passed off for pathology. There was minimal bleeding from the uterine cervix postprocedure and the patient was awoken from anesthesia. Sponge, lap, and needle counts were correct x2.
--- NOTE | 2019-02-02 06:59 | OPERATIVE NOTE ---
PROCEDURE DATE: 02/02/2019 PREDELIVERY DIAGNOSES: 1. at 14 and 5/7 weeks gestation. 2. Three prior sections. 3. demise. 4. Induction of labor. POST DELIVERY DIAGNOSES: 1. at 14 and 5/7 weeks gestation. 2. Three prior sections. 3. demise. 4. Induction of labor. 5. Placental retention. COMPLICATIONS: Placental retention. DELIVERY NOTE: The patient is admitted for induction of labor secondary to demise at 14 and 5/7th weeks gestation. She undergoes Cytotec induction, and after 2 doses of Cytotec she had a rapid expulsion of the 14 week fetus, unattended. Examination revealed a 3 cm cervix and nonpalpable placenta. A 3rd dose of Cytotec and oxytocin were given, and after several hours, there was no result in delivery of the placenta, and the decision was to diagnose a retained placenta and proceed with operative delivery of the placenta. 's 0 and 0. weight in the chart.
[2019-02-02] MEDS ORDERED: MORPHINE IV ONE (07:02)
[2019-02-02] MEDS: TORADOL IV PRN ×2 (07:41→13:53)
[2019-02-02 12:01] VITALS: BP 122/67
--- NOTE | 2019-02-02 14:40 | DISCHARGE SUMMARY ---
ADMISSION DATE: 02/01/2019 DISCHARGE DATE: Ms. Claire is a 28-year-old, G5, P2-1-1-3. She presented at 14 weeks and 5 days with a missed . She has been given augmentation to pass the products of conception and did so except for the placenta. She was then taken back for a dilation and curettage which removed the retained placenta. She did well with that procedure. She is being discharged home today. PRIMARY DIAGNOSIS: Fourteen week 5 day intrauterine with demise. SECONDARY DIAGNOSIS: Three previous sections. PROCEDURE PERFORMED: Vaginal delivery and dilation and curettage of retained placenta. INSTRUCTIONS AT DISCHARGE: The patient was told to have pelvic rest, to have no intercourse and insert nothing in vagina for 6 weeks. She is also told to follow up with DR. Ocampo in a week, to not exercise and to avoid submersion in a tub or pool. DISPOSITION: Is to home. DISCHARGE MEDICINES: See medication reconciliation form. cc: Joce Hansen,
[2019-02-02] MEDS ORDERED: PERICOLACE PO SCH (21:00)
== END 2019-02-02 16:00 | disposition home or self-care (01) | DRG 770 ==
LOC: P.ED 12:42 → P.OPLD 16:57 → P.LD 17:17 → P.OPLD 18:26 → P.LD 18:28
PROVIDERS: ADMIT Obstetrics & Gynecology Obstetrics; ATTEND Obstetrics & Gynecology Obstetrics
PROC: [UNRECOGNIZED PROCEDURE] (2019-02-02 06:00)